=== PATIENT | male | born 1950 | race Hispanic/Latino ===

== ENCOUNTER 2022-06-27 01:28 | Observation (INO) | payer BC ==
[~2022-06-27] VITALS: Ht 165.1 cm; Wt 76.2 kg
[2022-06-27] MEDS ORDERED: ONDANSETRON 4MG INJ IVP ONE (05:00)
[2022-06-27] MEDS ORDERED: PANTOPRAZOLE 40 MG/VIAL IVP ONE (05:00)
[2022-06-27] MEDS ORDERED: MORPHINE 4 MG SYG IM ONE (05:30)
[2022-06-27 05:43] LABS: BASOPHILS % (AUTO) 0.3 % (0.0-5.0); EOSINOPHILS % (AUTO) 0.1 % (0.0-8.0); HEMATOCRIT 48.2 % (42-54); LYMPHOCYTES % (AUTO) 7.5 % (21.0-51.0); MEAN CORPUSCULAR HGB CONC 34.4 g/dL (32.0-36.0); MONOCYTES % (AUTO) 6.3 % (3.0-13.0); NEUTROPHILS % (AUTO) 85.4 % (40.0-77.0); PLATELET COUNT (AUTO) 168 K/uL (130-400); RED BLOOD CELL COUNT(AUTO) 5.54 MIL/uL (4.50-6.20); RED CELL DISTRIBUTION WIDTH 12.6 % (11.0-15.5); WHITE BLOOD COUNT (AUTO) 14.2 K/uL (4.8-10.8)
[2022-06-27 05:52] LABS: APPEARANCE,URINE CLEAR (CLEAR); BILIRUBIN,URINE NEGATIVE (NEGATIVE); COLOR,URINE LIGHT-YELLOW (YELLOW); CREATININE 1.2 mg/dL (0.5-1.5); GLUCOSE, URINE (UA) >=1000 mg/dL (NEGATIVE); KETONES,URINE 20 mg/dL (NEGATIVE); LEUKOCYTE ESTERASE ,URINE NEGATIVE Leu/uL (NEGATIVE); NITRATE,URINE NEGATIVE (NEGATIVE); OCCULT BLOOD,URINE NEGATIVE (NEGATIVE); PH,URINE 7.5 (5.0-8.0); POTASSIUM 4.4 mmol/L (3.5-5.1); PROTEIN,URINE 50 mg/dL (NEGATIVE); UROBILINOGEN,URINE 0.2 mg/dL (0.2-1.0)
[2022-06-27 05:56] LABS: ALBUMIN 4.1 g/dL (3.5-5.0); TOTAL PROTEIN, SERUM 8.3 g/dL (6.0-8.3)
[2022-06-27 05:57] LABS: MUCUS,URINE RARE LPF (None Seen); WBC,URINE 0-1 /HPF (0-1)
[2022-06-27] MEDS ORDERED: ZOSYN 3.375GM +NS 50ML IVPB ONE (06:00)
[2022-06-27] MEDS ORDERED: 0.9%NACL 1000ML 1,000 ML IV SCH (07:00)
[2022-06-27] MEDS ORDERED: ONDANSETRON 4MG INJ IV PRN (07:00)
[2022-06-27] MEDS ORDERED: ACETAMINOPHEN 325 MG TAB PO PRN ×2 (07:00)
[2022-06-27] MEDS: AMLODIPINE 5 MG TAB PO SCH ×2 (07:50→08:58)
[2022-06-27] MEDS: HYDROCHLOROTHIAZIDE 25 MG TABLET PO SCH ×2 (07:50→08:58)
[2022-06-27] MEDS: FAMOTIDINE 20MG VIAL IV SCH ×2 (07:51→21:17)
[2022-06-27] MEDS: LISINOPRIL 20 MG TABLET PO SCH ×2 (07:51→08:58)
[2022-06-27] MEDS: HYDROMORPHONE 1 MG INJ IVP PRN ×3 (07:51→21:21)
[2022-06-27] MEDS ORDERED: LABETALOL 20MG VIAL IV PRN (08:00)
[2022-06-27 08:05] LABS: HEMOGLOBIN A1C 7.6 % (4.0-6.0)
[2022-06-27] MEDS: INSULIN HUMULIN R 100 UNIT/ML 3ML SQ SCH ×2 (12:00→18:23)
[2022-06-27] MEDS: ZOSYN 3.375GM+NS 50ML 50 ML IVPB SCH ×2 (13:00→21:19)
[2022-06-27 15:00] VITALS: BP 183/99
[2022-06-27] MEDS: LACTATED RINGERS 1000ML 1,000 ML IV SCH (16:25)
[2022-06-27 16:30] VITALS: BP 143/71
[2022-06-27 20:07] VITALS: BP 149/69
[2022-06-28] VITALS (25 sets, daily range): BP systolic 104–198; BP diastolic 56–95
[2022-06-28] MEDS: INSULIN HUMULIN R 100 UNIT/ML 3ML SQ SCH ×5 (00:12→23:30)
[2022-06-28] MEDS: ZOSYN 3.375GM+NS 50ML 50 ML IVPB SCH ×3 (04:12→20:26)
[2022-06-28] MEDS: LACTATED RINGERS 1000ML 1,000 ML IV SCH ×2 (04:15→18:46)
[2022-06-28 05:23] LABS: BASOPHILS % (AUTO) 0.2 % (0.0-5.0); HEMATOCRIT 48.7 % (42-54); LYMPHOCYTES % (AUTO) 4.9 % (21.0-51.0); MEAN CORPUSCULAR HEMOGLOBIN 29.8 pg (27.0-33.0); MEAN CORPUSCULAR HGB CONC 33.9 g/dL (32.0-36.0); MEAN CORPUSCULAR VOLUME 87.9 fL (79-99); MONOCYTES % (AUTO) 12.1 % (3.0-13.0); NEUTROPHILS % (AUTO) 81.9 % (40.0-77.0); PLATELET COUNT (AUTO) 168 K/uL (130-400); RED BLOOD CELL COUNT(AUTO) 5.54 MIL/uL (4.50-6.20); RED CELL DISTRIBUTION WIDTH 12.7 % (11.0-15.5); WHITE BLOOD COUNT (AUTO) 22.5 K/uL (4.8-10.8)
[2022-06-28 05:39] LABS: ALBUMIN 3.3 g/dL (3.5-5.0); CREATININE 1.4 mg/dL (0.5-1.5); POTASSIUM 4.2 mmol/L (3.5-5.1); TOTAL PROTEIN, SERUM 7.3 g/dL (6.0-8.3)
[2022-06-28] MEDS ORDERED: LIDOCAINE 2%-EPI 1:200,000 20 ML VIAL IJ ONE (07:56)
[2022-06-28] MEDS ORDERED: ROPIVACAINE 0.5% 5MG/ML 30ML IJ ONE (07:56)
[2022-06-28] MEDS ORDERED: INDOCYANINE GREEN 25 MG VIAL IJ ONE (08:08)
[2022-06-28] MEDS: HYDROCHLOROTHIAZIDE 25 MG TABLET PO SCH (09:00)
[2022-06-28] MEDS ORDERED: ACETAMINOPHEN 1,000 MG/100 ML VIAL IV ONE (09:00)
[2022-06-28] MEDS: AMLODIPINE 5 MG TAB PO SCH (09:00)
[2022-06-28] MEDS: LISINOPRIL 20 MG TABLET PO SCH (09:00)
[2022-06-28] MEDS ORDERED: LABETALOL 20MG VIAL IV ONE (09:25)
[2022-06-28] MEDS: FAMOTIDINE 20MG VIAL IV SCH ×2 (12:06→20:26)
[2022-06-28] MEDS: HYDROMORPHONE 1 MG INJ IVP PRN ×2 (13:41→19:02)
[2022-06-29] MEDS: HYDROMORPHONE 0.5 MG SYG (0.5MG/0.5ML) IVP PRN ×2 (01:50→06:08)
[2022-06-29 03:59] VITALS: BP 104/51
[2022-06-29] MEDS: ZOSYN 3.375GM+NS 50ML 50 ML IVPB SCH (04:02)
[2022-06-29 04:48] LABS: BASOPHILS % (AUTO) 0.3 % (0.0-5.0); HEMATOCRIT 42.4 % (42-54); LYMPHOCYTES % (AUTO) 10.3 % (21.0-51.0); MEAN CORPUSCULAR HEMOGLOBIN 29.9 pg (27.0-33.0); MEAN CORPUSCULAR VOLUME 90.4 fL (79-99); MONOCYTES % (AUTO) 12.4 % (3.0-13.0); NEUTROPHILS % (AUTO) 76.4 % (40.0-77.0); PLATELET COUNT (AUTO) 143 K/uL (130-400); RED BLOOD CELL COUNT(AUTO) 4.69 MIL/uL (4.50-6.20); WHITE BLOOD COUNT (AUTO) 12.2 K/uL (4.8-10.8)
[2022-06-29 05:13] LABS: ALBUMIN 2.5 g/dL (3.5-5.0); CREATININE 1.5 mg/dL (0.5-1.5); MAGNESIUM 1.6 mg/dL (1.80-2.40); POTASSIUM 4.3 mmol/L (3.5-5.1); TOTAL PROTEIN, SERUM 6.2 g/dL (6.0-8.3)
[2022-06-29] MEDS: INSULIN HUMULIN R 100 UNIT/ML 3ML SQ SCH ×2 (05:37→11:05)
[2022-06-29] MEDS: LACTATED RINGERS 1000ML 1,000 ML IV SCH (05:37)
[2022-06-29 07:44] VITALS: BP 100/62
[2022-06-29] MEDS: HYDROCHLOROTHIAZIDE 25 MG TABLET PO SCH (08:04)
[2022-06-29] MEDS: AMLODIPINE 5 MG TAB PO SCH (08:05)
[2022-06-29] MEDS: LISINOPRIL 20 MG TABLET PO SCH (08:05)
[2022-06-29] MEDS: FAMOTIDINE 20MG VIAL IV SCH (08:33)
[2022-06-29] MEDS ORDERED: LISI20TA24 PO (10:54)
[2022-06-29] MEDS ORDERED: CEFU500T67 PO (11:00)
[2022-06-29 11:26] VITALS: BP 113/49
== END 2022-06-29 14:30 | disposition home or self-care (01) ==
LOC: EDH 01:28 → EDHIP 06:54 → INTOOBSV 06:54 → 3AH 14:42
PROVIDERS: ADMIT Internal Medicine; ATTEND Internal Medicine
DX: K81.0 Acute cholecystitis (principal); Z20.822 Contact with and (suspected) exposure to COVID-19; K82.8 Other specified diseases of gallbladder; N39.0 Urinary tract infection, site not specified; Q33.3 Agenesis of lung; D72.829 Elevated white blood cell count, unspecified; E87.1 Hypo-osmolality and hyponatremia; I10 Essential (primary) hypertension; E11.65 Type 2 diabetes mellitus with hyperglycemia; Z79.899 Other long term (current) drug therapy; Z98.890 Other specified postprocedural states
CPT/HCPCS: 99285; 78226; 96366 ×3; 76705; 71045; 83036; 82550; 84484; 80053 ×3; 83690; 85025 ×3; 82948 ×10; 81001; 36415 ×3; 96376 ×3; 96372 ×2; 96365; 96375 ×2; 47562; 87635; 83735; J3490 ×7; J1170 ×7; J7030 ×2; J2405 ×2; J2270; J2543 ×5; C9113; A9537; J1815; A4663; J2795; C1769 ×3; A4649 ×2; A4215; A4222; A4221; A4216; G0378; A4223 ×2